=== PATIENT | female | born 1985 | race Caucasian/White ===

== ENCOUNTER 2019-09-26 19:27 | Emergency (ER) | payer OTHER ==
[~2019-09-26] VITALS: Ht 157.5 cm; Wt 71.4 kg
[~2019-09-26 19:27] MED LIST: ISOMETH/DICHLOR1 CAP PO; MACROBID 1100 MG/CAP PO; MAXALT5 MG PO; NAPROSYN 2250 MG/TAB PO; PYRIDIUM200 M1 PO
[2019-09-26 19:41] VITALS: BP 126/71; TEMP 98.2
[2019-09-26 20:37] VITALS: PULSE 70
== END 2019-09-26 20:38 | disposition home or self-care (01) ==
LOC: COL.ER 19:27
DX: S93.401A Sprain of unspecified ligament of right ankle, initial encounter (principal); X50.1XXA Overexertion from prolonged static or awkward postures, initial encounter; Y92.410 Unspecified street and highway as the place of occurrence of the external cause

== ENCOUNTER 2020-09-03 12:23 | Emergency (ER) | payer OTHER ==
[~2020-09-03] VITALS: Ht 154.9 cm; Wt 75.0 kg
[2020-09-03 12:51] VITALS: TEMP 98.4
[2020-09-03 13:50] LABS: BASO # 0.1 (0.0-0.2); BASO % 0.7 % (0.0-2.0); EOS # 0.2 (0.0-0.7); EOS % 2.1 % (0-4.0); GRAN # 3.1 (1.4-6.5); GRAN % 43.1 % (42.2-75.2); HEMATOCRIT 41.9 % (37.0-47.0); HEMOGLOBIN 13.5 g/dl (12.5-16.0); LYMPH # 3.3 (1.2-3.4); LYMPH % 45.5 % (20.0-51.0); MEAN CELL VOLUME 85 fl (80.0-100.0); MEAN CORPUSCULAR HEMOGLOBIN 27 pg (27.0-31.0); MEAN CORPUSCULAR HGB CONC 32 g/dl (33.0-37.0); MEAN PLATELET VOLUME 10.2 fl (7.4-10.4); MONO # 0.6 (0.1-0.6); MONO % 8.3 % (1.7-9.3); PLATELET COUNT 278 K/mm3 (130-400); RED BLOOD COUNT 4.95 M/mm3 (4.10-5.30); REDCELL DISTRIBUTION WIDTH-CV 13.2 % (11.5-14.5)
[2020-09-03 13:59] LABS: PROTHROMBIN TIME 11.1 SECONDS (9.7-12.8)
[2020-09-03 14:03] LABS: ALBUMIN 4.4 gm/dL (3.5-5.0); BILIRUBIN,TOTAL 0.3 mg/dL (0.0-1.0); CALCIUM 9.3 mg/dL (8.4-10.2); CREATININE, serum 0.59 (0.52-1.25); POTASSIUM 3.8 mmol/L (3.4-5.0); TOTAL PROTEIN 7.4 gm/dL (6.4-8.2)
[2020-09-03] MEDS ORDERED: ADIPEX-P37.5 MG PO (14:22)
[2020-09-03 16:00] VITALS: BP 107/78; PULSE 64
== END 2020-09-03 16:07 | disposition home or self-care (01) ==
LOC: COL.ER 12:23
PROVIDERS: Physician Assistant
DX: K52.9 Noninfective gastroenteritis and colitis, unspecified (principal); Z32.02 Encounter for pregnancy test, result negative; Z23 Encounter for immunization; Z90.710 Acquired absence of both cervix and uterus
CPT/HCPCS: C9113; J7030; Q9967

== ENCOUNTER 2020-12-01 21:05 | Emergency (ER) | payer OTHER ==
[~2020-12-01] VITALS: Ht 154.9 cm; Wt 79.5 kg
[~2020-12-01 21:05] MED LIST changes: +ADIPEX-P37.5 MG PO
[2020-12-01 21:12] VITALS: BP 137/84; TEMP 98.1
[2020-12-01 21:51] LABS: BASO # 0.1 (0.0-0.2); BASO % 0.6 % (0.0-2.0); EOS # 0.1 (0.0-0.7); EOS % 1.3 % (0-4.0); GRAN # 5.4 (1.4-6.5); HEMATOCRIT 38.7 % (37.0-47.0); HEMOGLOBIN 12.8 g/dl (12.5-16.0); LYMPH # 4.2 (1.2-3.4); LYMPH % 39.8 % (20.0-51.0); MEAN CELL VOLUME 84 fl (80.0-100.0); MEAN CORPUSCULAR HEMOGLOBIN 28 pg (27.0-31.0); MEAN CORPUSCULAR HGB CONC 33 g/dl (33.0-37.0); MEAN PLATELET VOLUME 10.1 fl (7.4-10.4); MONO # 0.8 (0.1-0.6); MONO % 7.1 % (1.7-9.3); PLATELET COUNT 297 K/mm3 (130-400); RED BLOOD COUNT 4.61 M/mm3 (4.10-5.30); REDCELL DISTRIBUTION WIDTH-CV 13.6 % (11.5-14.5)
[2020-12-01 22:04] LABS: ALANINE AMINOTRANSFERASE 13 U/L (4-34); ALBUMIN 4.2 gm/dL (3.5-5.0); ALKALINE PHOSPHATASE 85 U/L (50-136); ANION GAP 7 mmol/L (7-16); AST,SGOT 23 U/L (15-37); BILIRUBIN,TOTAL 0.3 mg/dL (0.0-1.0); BLOOD UREA NITROGEN 13 mg/dL (7-17); CALCIUM 9.3 mg/dL (8.4-10.2); CARBON DIOXIDE 27 mmol/L (22-30); CHLORIDE 105 mmol/L (98-107); CREATININE, serum 0.73 (0.52-1.25); GLUCOSE 103 mg/dL (74-106); LIPASE 77 U/L (23-300); POTASSIUM 3.7 mmol/L (3.4-5.0); SODIUM 138 mmol/L (137-145); TOTAL PROTEIN 7.4 gm/dL (6.4-8.2)
[2020-12-01 22:05] LABS: C-REACTIVE PROTEIN < 0.5 mg/dL (0.0-0.9)
[2020-12-01 22:24] LABS: COLLECTION METHOD CLEAN CATCH
[2020-12-01 22:29] LABS: PH 8 (5-8); URINE APPEARANCE Clear; URINE BACTERIA None Seen /hpf; URINE BILIRUBIN Negative (NEGATIVE); URINE BLOOD Negative (NEGATIVE); URINE COLOR Yellow; URINE GLUCOSE Negative (NEGATIVE); URINE KETONE Negative (NEGATIVE); URINE LEUKOCYTE ESTERASE Negative (NEGATIVE); URINE NITRATE Negative (NEGATIVE); URINE PROTEIN(semi-quant) Negative (NEGATIVE); URINE RBC 0-2 /hpf
[2020-12-01 23:53] VITALS: PULSE 77
== END 2020-12-01 23:54 | disposition home or self-care (01) ==
LOC: COL.ER 21:05
PROVIDERS: Nurse Practitioner Primary Care
DX: R10.12 Left upper quadrant pain (principal); Z88.5 Allergy status to narcotic agent; Z88.6 Allergy status to analgesic agent
CPT/HCPCS: J1885; J2405; J3010; J7030

== ENCOUNTER 2021-04-11 06:04 | Day surgery (SDC) | payer OTHER ==
[~2021-04-11] VITALS: Ht 168.9 cm; Wt 79.3 kg
[2021-04-11] MEDS ORDERED: AMBIEN 10MG10 MG PO (06:29)
[2021-04-11] MEDS ORDERED: MINIPRESS 5M5 MG/CAP PO (06:29)
[2021-04-11] MEDS ORDERED: PROZAC40 MG PO (06:30)
[2021-04-11] MEDS ORDERED: VYVANSE30 MG PO (06:31)
[2021-04-11 07:39] VITALS: BP 103/65; PULSE 69; TEMP 87.8
[2021-04-11 07:40] VITALS: TEMP 97.8
--- NOTE | 2021-04-11 07:40 | NUR ---
PATIENT TRANSPORTED PER CART ACCOMPANIED BY BARBRA RN TO BAY 1. PATIENT AMBULATED FROM CART TO CHAIR WITH 1 ASSIST. STEADY GAIT. MONITORS APPLIED. VSS ON ROOM AIR. PATIENT DENIES DISCOMFORT OR NAUSEA.
[2021-04-11 07:45] VITALS: BP 88/77; PULSE 64
[2021-04-11 08:00] VITALS: BP 105/72; PULSE 55
--- NOTE | 2021-04-11 08:00 | NUR ---
BLOOD PRESSURE IMPROVED. PATIENT TOLERATES MUFFIN AND WATER WITHOUT PROBLEMS. DR BELL IN ROOM AND SPEAKS WITH PATIENT. PATIENT DENIES DISCOMFORT AND NAUSEA. PATIENT TALKS WITH STAFF.
[2021-04-11 08:10] VITALS: BP 105/70; PULSE 68
--- NOTE | 2021-04-11 08:10 | NUR ---
VSS ON ROOM AIR. IV DC'D. DISCHARGE INSTRUCTIONS GIVEN VERBAL AND DISCHARGE PACKET PROVIDED. QUESTIONS ANSWERED AND PATIENT VOICED UNDERSTANDING. PATIENT CHANGES INT STREET CLOTHES
[2021-04-11 14:12] VITALS: BP 106/68; PULSE 60
== END 2021-04-11 08:25 | disposition home or self-care (01) ==
LOC: SDCO 06:04
DX: K29.30 Chronic superficial gastritis without bleeding (principal); K62.89 Other specified diseases of anus and rectum; K92.1 Melena; K63.89 Other specified diseases of intestine; K44.9 Diaphragmatic hernia without obstruction or gangrene; K64.0 First degree hemorrhoids; K52.9 Noninfective gastroenteritis and colitis, unspecified; R15.2 Fecal urgency; R63.4 Abnormal weight loss; K21.9 Gastro-esophageal reflux disease without esophagitis; R10.812 Left upper quadrant abdominal tenderness; U07.1 COVID-19; F32.9 Major depressive disorder, single episode, unspecified; F43.10 Post-traumatic stress disorder, unspecified; F50.81 Binge eating disorder; Z90.710 Acquired absence of both cervix and uterus; Z79.899 Other long term (current) drug therapy; Z87.891 Personal history of nicotine dependence
CPT/HCPCS: J2250; J2704; J7030

== ENCOUNTER 2022-05-03 06:17 | Emergency (ER) | payer OTHER ==
[~2022-05-03] VITALS: Ht 157.5 cm; Wt 78.2 kg
[~2022-05-03 06:17] MED LIST changes: +AMBIEN 10MG10 MG PO; +MINIPRESS 5M5 MG/CAP PO; +PROZAC40 MG PO; +VYVANSE30 MG PO
[2022-05-03 06:30] VITALS: TEMP 98.3
[2022-05-03 06:47] LABS: BASO % 0.3 % (0.0-2.0); EOS # 0.1 K/mm3 (0.0-0.7); EOS % 0.5 % (0.0-4.0); GRAN # 9.6 K/mm3 (1.4-6.5); GRAN % 87.6 % (42.2-75.2); HEMATOCRIT 44.1 % (37.0-47.0); HEMOGLOBIN 14.6 g/dl (12.5-16.0); LYMPH # 0.7 K/mm3 (1.2-3.4); LYMPH % 6.4 % (20.0-51.0); MEAN CELL VOLUME 82 fl (80.0-100.0); MEAN CORPUSCULAR HEMOGLOBIN 27 pg (27-31); MEAN CORPUSCULAR HGB CONC 33 g/dl (33.0-37.0); MEAN PLATELET VOLUME 9.7 fl (7.4-10.4); MONO # 0.6 K/mm3 (0.1-0.6); PLATELET COUNT 287 K/mm3 (130-400); RED BLOOD COUNT 5.41 M/mm3 (4.10-5.30); REDCELL DISTRIBUTION WIDTH-CV 13.4 % (11.5-14.5)
[2022-05-03 07:04] LABS: BILIRUBIN,TOTAL 0.6 mg/dL (0.2-1.2); CREATININE, serum 0.72 mg/dL (0.57-1.11); POTASSIUM 3.7 mmol/L (3.5-4.5); TOTAL PROTEIN 7.4 gm/dL (6.2-8.1)
[2022-05-03 07:41] LABS: COLLECTION METHOD CLEAN CATCH
[2022-05-03 07:48] LABS: MUCOUS Present (NOT PRESENT); PH 5 (5-8); URINE APPEARANCE Hazy (CLEAR/HAZY); URINE BACTERIA None Seen /hpf (NONE SEEN); URINE BILIRUBIN Negative (NEGATIVE); URINE BLOOD 1+ (NEGATIVE); URINE COLOR Yellow (YELLOW); URINE GLUCOSE Negative (NEGATIVE); URINE KETONE Negative (NEGATIVE); URINE LEUKOCYTE ESTERASE Negative (NEGATIVE); URINE NITRATE Negative (NEGATIVE); URINE PROTEIN(semi-quant) Negative (NEGATIVE); URINE RBC 0-2 /hpf (0-2); URINE UROBILINOGEN Negative (NEGATIVE)
[2022-05-03] MEDS ORDERED: ZOFRAN ODT4 MG PO ×3 (08:02→08:09)
[2022-05-03] MEDS ORDERED: PEPCID 20MG TAB20 MG PO (08:09)
[2022-05-03 08:14] VITALS: BP 111/78; PULSE 83
== END 2022-05-03 08:14 | disposition home or self-care (01) ==
LOC: COL.ER 06:17
PROVIDERS: Emergency Medicine
DX: R10.13 Epigastric pain (principal); Z87.891 Personal history of nicotine dependence; Z32.02 Encounter for pregnancy test, result negative; Z28.310 Unvaccinated for COVID-19
CPT/HCPCS: J2405; J7030

== ENCOUNTER 2023-11-13 17:14 | Emergency (ER) | payer OTHER ==
[~2023-11-13] VITALS: Ht 157.5 cm; Wt 81.8 kg
[~2023-11-13 17:14] MED LIST changes: +NORCO 325 MG-51 TAB PO; +PEPCID 20MG TAB20 MG PO; +ZOFRAN ODT4 MG PO
[2023-11-13 18:14] VITALS: BP 122/86; PULSE 86; TEMP 98
== END 2023-11-13 18:14 | disposition home or self-care (01) ==
LOC: COL.ER 17:14
DX: S91.311A Laceration without foreign body, right foot, initial encounter (principal); Z87.891 Personal history of nicotine dependence; W26.0XXA Contact with knife, initial encounter